=== PATIENT | female | born 2000 | race Caucasian/White ===

== ENCOUNTER 2022-11-21 10:09 | Emergency (ER) | payer BC ==
[2022-11-21 10:16] VITALS: TEMP 97.6; BMI 25.0
[2022-11-21 11:00] LABS: BASO % 0.4 % (0-2.0); EOS % 0.8 % (0-4.5); HEMATOCRIT 38.1 % (32.4-45.2); LYMPH % 16.1 % (8-40); MEAN CELL VOLUME 85.3 fl (80-96); MEAN PLT VOLUME 8.1 fl (7.5-11.1); MONO % 5.6 % (3.8-10.2); NEUT % 77.1 % (42.8-82.8); PLATELET COUNT 265 10^3/uL (134-434); RBC 4.47 M/mm3 (3.60-5.2); RDW 14.4 % (11.6-15.6); WHITE BLOOD COUNT 10.8 K/mm3 (4.0-10.0)
[2022-11-21 11:02] LABS: EPI CELLS >36 /uL (0-25.1); HYALINE CASTS 1 /uL (0-3.1); PH,URINE 5.5 (5.0-8.0); URINE APPEARANCE CLOUDY; URINE BACTERIA 557 /uL (0-1359); URINE BILIRUBIN NEGATIVE (NEGATIVE); URINE COLOR YELLOW; URINE GLUCOSE (UA) NEGATIVE (NEGATIVE); URINE KETONE NEGATIVE (NEGATIVE); URINE LEUK ESTERASE NEGATIVE (NEGATIVE); URINE NITRITE NEGATIVE (NEGATIVE); URINE PROTEIN NEGATIVE (NEGATIVE); URINE RBC 4 /uL (0-23.9); URINE UROBILINOGEN 0.2 mg/dL (0.2-1.0); URINE WBC 20 /uL (0-25.8)
[2022-11-21 11:25] LABS: POTASSIUM 4.2 mmol/L (3.5-5.1)
[2022-11-21 11:27] LABS: CALCIUM 9.3 mg/dL (8.5-10.1)
[2022-11-21 11:28] LABS: ALBUMIN 3.2 g/dl (3.4-5.0); BLOOD UREA NITROGEN 9.6 mg/dL (7-18)
[2022-11-21 11:31] LABS: CREATININE 0.6 mg/dL (0.55-1.3)
[2022-11-21 11:32] LABS: BILIRUBIN,TOTAL 0.2 mg/dL (0.2-1); TOT PROT 7.2 g/dl (6.4-8.2)
[2022-11-21 14:18] VITALS: BP 117/52; PULSE 72; RESP 14
== END 2022-11-21 14:19 | disposition home or self-care (01) ==
LOC: JER 10:09
DX: O20.9 Hemorrhage in early pregnancy, unspecified (principal); Z3A.13 13 weeks gestation of pregnancy
CPT/HCPCS: 36415; 76817-TC; 80053; 81003; 84702; 85025; 86850; 86870; 86900; 86901; 86902; 87086; 99284-25

== ENCOUNTER 2022-12-23 19:58 | Emergency (ER) | payer BC ==
[2022-12-23 20:14] VITALS: BP 108/63; PULSE 85; RESP 14; TEMP 98.3; BMI 26.9
[2022-12-23 21:33] LABS: BASO % 0.5 % (0-2.0); EOS % 1.2 % (0-4.5); HEMATOCRIT 35.1 % (32.4-45.2); HEMOGLOBIN 11.9 GM/dL (10.7-15.3); LYMPH % 17.2 % (8-40); MCH 29.7 pg (25.7-33.7); MCHC 33.8 g/dl (32.0-36.0); MEAN CELL VOLUME 87.9 fl (80-96); MONO % 7.3 % (3.8-10.2); NEUT % 73.8 % (42.8-82.8); PLATELET COUNT 263 10^3/uL (134-434); RBC 3.99 M/mm3 (3.60-5.2); RDW 14.3 % (11.6-15.6); WHITE BLOOD COUNT 11.3 K/mm3 (4.0-10.0)
[2022-12-23 21:55] LABS: POTASSIUM 3.9 mmol/L (3.5-5.1)
[2022-12-23 21:56] LABS: CALCIUM 8.6 mg/dL (8.5-10.1)
[2022-12-23 21:58] LABS: BLOOD UREA NITROGEN 6.1 mg/dL (7-18)
[2022-12-23 22:00] LABS: CREATININE 0.5 mg/dL (0.55-1.3)
== END 2022-12-23 22:19 | disposition home or self-care (01) ==
LOC: JER 19:58
DX: O20.9 Hemorrhage in early pregnancy, unspecified (principal); Z3A.18 18 weeks gestation of pregnancy
CPT/HCPCS: 36415; 76817-TC; 80048; 85025; 99284-25